=== PATIENT | male | born 1965 | race Caucasian/White ===

== ENCOUNTER 2018-02-26 16:38 | Emergency (ER) | payer SELFPAY ==
--- NOTE | 2018-02-26 16:46 | EDPHY ---
General Time Seen by Provider: 02/26/18 16:40 Narrative: 1740: I assessed this patient at the request of Gauarv CERRATO. The patient reports that he was discharged from [facility] 2 weeks ago after an 8 week admission, for an unknown bacterial infection of his legs which required a skin graft. He is unsure which IV antibiotics he was on but believes they were continuous. He was discharged with an antibiotic prescription but has not filled this. Denies fever or history of endocarditis. He does admit to prior abuse of heroin and cocaine as well as a medical history of diabetes and hepatitis. On exam he has bilateral macerated, open, weeping, sloughing, erythematic, warm to the touch lower extremities. (Karen Dumont) CHIEF COMPLAINT: medical clearance for [facility] HISTORY OF PRESENT ILLNESS: Patient presents in custody of [facility]'s Office for medical clearance for incarceration. The forest officer does not know the reason he is here but says he has "some skin infections on his legs." He also reports that he was Center as "they wouldn't take him at the [facility]." Patient reports that he has had some wounds to the legs that he was reportedly admitted for [facility] for nearly 8 weeks, discharged home approximately 3 weeks ago. He also has a reported "cyst on the front of my spine." He has no leg weakness, numbness or tingling. No incontinence of bowel or bladder. He has been able to walk. He says that he is here because he missed a court date while he was in the hospital most recently. [facility] officer at bedside reports that he had a warrant and is here because of a welfare check. The patient's only complaints are his lower extremities. The painful to him. He has had no fever. REVIEW OF SYSTEMS: Ten systems reviewed and are negative unless otherwise noted in the HPI PCP: In [facility] SPECIALISTS: None currently PAST MEDICAL HISTORY: "a lot of things,"does know that he has diabetes mellitus and hypertension PAST SURGICAL HISTORY: No recent surgeries. Previous skin graft SOCIAL HISTORY: Daily smoker. Denies any alcohol or drug use. Lives independently. Recent hospitalizations FAMILY HISTORY: Noncontributory EXAMINATION General Appearance: Alert, no distress. Well-developed and well-nourished Head: normocephalic, atraumatic Eyes: Pupils equal and round, no conjunctival pallor or injection ENT, Mouth: Mucous membranes moist. Poor dentition. Airway patent Neck: Normal inspection, supple, non-tender Respiratory: Lungs are clear to auscultation Cardiovascular: Regular rate and rhythm. No murmur Gastrointestinal: Abdomen is soft and nontender Back: non-tender, no bony abnormalities Neurological: GCS 15. A&O, nonfocal, normal gait Skin: Warm and dry. There is extensive skin changes to lower extremities below the knees in a stocking-glove fashion, consistent with diabetic stasis ulcers with secondary infection and sloughing of the skin I do not appreciate any crepitus or gangrenous appearance. Extremities: tenderness over the lower extremity skin changes. Range of motion lower extremities symmetric. Psychiatric: Mood and affect normal DIFFERENTIAL DIAGNOSES: Including but not limited to diabetic stasis ulcers, cellulitis, MRSA, abscess, Yamil Mack's, diskitis MDM: 4:45 p.m. Medical clearance for incarceration with lower extremity extensive ulcerations and sloughing of the skin. Vital signs are within normal limits. He does not meet any SIRS criteria. He has no neuro complaints despite reporting "a cyst on my spine." I have tried multiple per mutations the patient's name and date of in [facility], but I have been unable to locate his records. We will contact [facility] to receive them. Dr. Dumont will evaluate the patient as well. He is resting in no acute distress. 5:50 p.m. I have now been able to obtain the [facility] report, and Dr. Dumont has evaluated the patient. Patient's discharge summary is available via [facility], and it reveals evidence of MSSA skin infection with possible thoracolumbar osteomyelitis versus abscess. The patient was treated extensively with IV antibiotics and then signed out AMA on February 14. He was instructed to take Bactrim and vancomycin, as he had previous C difficile infection. He tells me has not been taking his antibiotics as prescribed. 6:55 p.m. Notified by RNLizbeth. Patient is no longer under arrest per [facility]'s office, and the patient is now asking to leave. AMA form is being completed, and I will notify Dr. dumont. 7:[address] Dumont notified of the patient's wanting to sign out AMA. I have evaluated the patient and I do feel he has the ability to make this decision. He is awake and alert, in no acute distress, he is not any significant pain or have any distracting injury at this time. He has full capability of understanding the risks the we discussed, including deterioration and even . He is willing to assume this risk and has completed the AMA form and wants to be discharged home. He will be discharged with Keflex and instructions to return to emergency department should he change his mind. He informs me that he will, and that he also has an appointment at [facility] in 2 days. At this time he is stable and he will sign out against medical advice. SUPERVISION: Patient was evaluated and examined in conjunction with my secondary supervising physician as documented. We have both examined the patient. (Gaurav Cárdenas) - Diagnostics Imaging Results: Imaging Impressions Tibia/Fibula X-Ray 02/26/18 17:56 Impression: Soft tissue swelling. No evidence for osseous erosion to suggest osteomyelitis. Tibia/Fibula X-Ray 02/26/18 17:57 Impression: Soft tissue swelling around the left ankle. No definite osteomyelitis. Possible stress fracture posterior calcaneus. - Objective Vital Signs: Initial Vital Signs Temperature (C) 100.0 F 02/26/18 16:41 Heart Rate 90 02/26/18 16:41 Respiratory Rate 16 02/26/18 16:41 Blood Pressure 137/88 H 02/26/18 16:41 O2 Sat (%) 97 02/26/18 16:41 O2 Delivery Mode Room Air Allergies/Adverse Reactions: No Known Allergies Allergy (Unverified 11/06/13 15:11) Home Medications: Medication Instructions Recorded Cephalexin [Keflex (*)] 500 mg PO QID #40 cap 02/26/18 Medications Given: Discontinued Medications Cephalexin (Keflex 500 Mg Prepack#4) 1 btl TAKEHOME EDNOW ONE PRN Reason: Protocol Stop: 02/26/18 19:03 Last Admin: 02/26/18 19:15 Dose: 1 btl Departure - Departure Disposition: Against Medical Advice Clinical Impression: Methicillin susceptible Staphylococcus epidermidis infection Condition: Good Instructions: Cephalexin (By mouth), Cellulitis (ED) Additional Instructions: 1. Recommend that he return to emergency department to complete your care as we do feel he will need inpatient care 2. A few choose not to return to the emergency department, please keep your appointment with your [facility] physicians 3. ED precautions as discussed Referrals: NONE *PRIMARY CARE P,. [Primary Care Provider] - As per Instructions Prescriptions: Cephalexin [Keflex (*)] 500 mg PO QID #40 cap
[2018-02-26 16:48] VITALS: BP 137/88
[2018-02-26] MEDS ORDERED: NS 1,000 ML IV ONE (17:59)
[2018-02-26] MEDS ORDERED: VANCOMYCIN 1.25 GM in D5W 250 ML IV ONE (18:03)
[2018-02-26] MEDS ORDERED: ALTEPLASE 2 MG VIAL IVP PRN (18:16)
[2018-02-26] MEDS ORDERED: CEPHALEXIN 500MG PREPACK#4 BTL TAKEHOME ONE (19:02)
== END 2018-02-26 19:18 | disposition left against medical advice (07) ==
DX: A49.01 Methicillin susceptible Staphylococcus aureus infection, unspecified site (principal)
CPT/HCPCS: J3370

== ENCOUNTER 2018-07-28 14:56 | Inpatient (IN) | payer MEDICAID, OTHER ==
--- NOTE | 2018-07-28 14:57 | EDPHY ---
H & P Time Seen by Provider: 07/28/18 14:57 HPI/ROS: HPI CHIEF COMPLAINT: Back pain. HISTORY OF PRESENT ILLNESS: This is a 52-year-old male, he is currently incarcerated, has a history of IV drug use, has a history of osteomyelitis of his lumbar spine which required 2 rounds of antibiotics. He states he was seen at [facility] as well as a [facility]. He has been incarcerated. He states that he has had increasing low back pain since being incarcerated. Denies fever. Denies saddle anesthesia, denies leg weakness. Past Medical History: IV drug use. Past Surgical History: No recent surgery Social History: Incarcerated, IV drug use. Opiate abuse. Family History: Noncontributory ROS REVIEW OF SYSTEMS: 10 Systems were reviewed and negative with the exception of the elements mentioned in the history of present illness. Exam Constitutional triage nursing summary reviewed, vital signs reviewed, awake/ alert. Eyes normal conjunctivae and sclera, EOMI, PERRLA. HENT normal inspection, atraumatic, moist mucus membranes, no epistaxis, neck supple/ no meningismus, no raccoon eyes. Respiratory clear to auscultation bilaterally, normal breath sounds, no respiratory distress, no wheezing. Cardiovascular rate normal, regular rhythm, no murmur, no edema, distal pulses normal. Gastrointestinal soft, non-tender, no rebound, no guarding, normal bowel sounds, no distension, no pulsatile mass. Genitourinary no CVA tenderness. Musculoskeletal back exam no significant step-offs or crepitus, no midline vertebral tenderness, full range of motion, no calf swelling, no tenderness of extremities, no meningismus, good pulses, neurovascularly intact. Skin chronic wounds to bilateral lower extremities. No significant warmth. I do not appreciate acute cellulitis or abscess. Track lee up the legs. Neurologic awake, alert and oriented x 3, AAOx3, moves all 4 extremities equally, motor intact, sensory intact, CN II-XII intact, normal cerebellar, normal vision, normal speech. Psychiatric normal mood/affect. Heme/Lymph/Immune no lymphadenopathy. Differential Diagnosis: Includes but is not limited to osteomyelitis, diskitis , IV drug use, bacteremia, sepsis Medical Decision Making: Plan for this patient IV establishment blood draw, blood cultures, inflammatory markers, MRI with and without contrast of the lumbar spine. Low threshold for admission. Re-evaluation: I spoke with Dr. Gamez. Discussed case in detail. She recommends IR guided placement of a IV. Will set this up multiple attempts were made in the emergency room including by myself ultrasound to get IV access and was unable to do so. Was able to place a right neck peripheral IV under ultrasound guidance with good blood flow however this infiltrated. 1710: Of note we were able to obtain IV access. Peripheral. He now proceed with MRI. Additionally the officer is accompanying him as he is incarcerated gave him his personal belongings in the patient belong bags he had a bottle of methadone 80 mg he ingested this. This was originally unknown to the officer however we confronted the patient about he admits to taking 80 mg p.o. Methadone in the emergency room. This is his normal dose. Will watch for sedation. The patient asked for IV Ativan to get an MRI of his back however declined to give it to have as he took 80 mg of methadone without notifying us and he is about to go to MRI. I do not think that it is appropriate to give him Ativan as he just took a large dose of methadone prior to MR I. Will continue monitor. Will admit the patient to the hospitalist service as his MRI results have been called to me by Dr. Schuster, there is some enhancement at disc 3 4 anterior aspect concerning for possibly early diskitis. I will consult ID for IV antibiotic recommendations 1818: Spoke with ID discussed the case in detail. Recommends IV Vanco. Recommends admission. He will consult and see and evaluate the patient tommorrow. Hospalist to admit. Source: Patient, Police - Medical/Surgical History Other PMH: untreated Hep C, Type II diabetic, Chronic pain with polysubstance abuse ( heroin and cocaine), Htn, history of afib, anemia and MSSA bactermia of T7-8, soft tissue infection of lower legs Anxiety, hypoxia. Pt left AMA from [place] earlier this month foll Constitutional: Initial Vital Signs Temperature (C) 36.6 C 07/28/18 14:59 Heart Rate 100 07/28/18 14:59 Respiratory Rate 16 07/28/18 14:59 Blood Pressure 165/120 H 07/28/18 14:59 O2 Sat (%) 99 07/28/18 14:59 O2 Delivery Mode Room Air Allergies/Adverse Reactions: No Known Allergies Allergy (Unverified 11/06/13 15:11) Home Medications: Medication Instructions Recorded Ibuprofen [Motrin (*)] 400 mg PO BID PRN 07/28/18 Lisinopril [Zestril 20 mg (*)] 20 mg PO DAILY 07/28/18 Methadone HCl [Methadone Oral 80 mg PO DAILY 07/28/18 Liquid] Acetaminophen [Tylenol 325mg (*)] 650 mg PO Q4HRS PRN tab 07/30/18 Pregabalin [Lyrica 50mg (*)] 50 mg PO DAILY #30 cap 07/30/18 Medical Decision Making - Diagnostics Imaging Results: Imaging Impressions Lumbar Spine MRI 07/28/18 15:02 Impression: 1. Progressive degenerative disk and degenerative joint disease of L3-L4 over the interval with mild encroachment. There is mild endplate edema and enhancement and fluid enhancement of the anterior disk at L3-L4 which can be seen with the degenerative disk and degenerative endplate change, although early diskitis cannot be excluded. 2. Degenerative disk and degenerative joint disease of L4-L5 and L5-S1 as detailed above by level. Results called and discussed with Cassius Banks MD, on 07/28/2018, 18:14. - Data Points Laboratory Results: Laboratory Results 07/29/18 03:38 07/29/18 03:38 Microbiology Results: MICROBIOLOGY 07/28/18 18:35 Blood Blood Culture - Preliminary 07/28/18 15:28 Blood Blood Culture - Preliminary Medications Given: Discontinued Medications Hydrocodone Bitart/Acetaminophen ([place] 5/325) 1 - 2 tab PO Q4HRS PRN PRN Reason: Pain, Moderate Able to Take PO Stop: 08/07/18 19:06 Last Admin: 07/30/18 12:13 Dose: 2 tab Sodium Chloride (Ns) 1,000 mls @ 0 mls/hr IV EDNOW ONE; Wide Open PRN Reason: Protocol Stop: 07/28/18 15:03 Last Admin: 07/28/18 17:48 Dose: 1,000 mls Vancomycin/Sodium Chloride (Vancomycin 1 Gm (Premix)) 250 mls @ 250 mls/hr IV EDNOW ONE PRN Reason: Protocol Stop: 07/28/18 19:12 Last Admin: 07/28/18 19:02 Dose: 250 mls Piperacillin/Tazobactam/Dextrose (Zosyn (Premix)) 100 mls @ 200 mls/hr IV EDNOW ONE PRN Reason: Protocol Stop: 07/28/18 18:42 Last Admin: 07/28/18 19:16 Dose: Not Given Vancomycin HCl 1.25 gm/ Sodium (Chloride) 250 mls @ 166.667 mls/hr IV 0600, 1800 [facility] Stop: 08/28/18 05:59 Last Admin: 07/29/18 06:23 Dose: 250 mls Ibuprofen (Motrin) 800 mg PO EDNOW ONE Stop: 07/28/18 15:25 Last Admin: 07/28/18 15:58 Dose: Not Given Ibuprofen (Motrin) 400 mg PO Q4HRS PRN PRN Reason: Pain, Mild/Fever, Can Take PO Stop: 01/24/19 19:06 Last Admin: 07/29/18 16:30 Dose: 400 mg Lisinopril (Zestril) 20 mg PO DAILY [facility] Stop: 01/25/19 08:59 Last Admin: 07/30/18 08:12 Dose: 20 mg Lorazepam (Ativan Injection) 0.5 mg IVP EDNOW ONE Stop: 07/28/18 16:54 Last Admin: 07/28/18 17:09 Dose: Not Given Lorazepam (Ativan Injection) 0.5 - 1 mg IVP Q8HRS PRN PRN Reason: Anxiety, Unable to Take PO Stop: 01/24/19 19:06 Last Admin: 07/28/18 20:58 Dose: 1 mg Methadone HCl (Dolophine) 80 mg PO DAILY@1999 [facility] Stop: 08/08/18 19:59 Last Admin: 07/29/18 21:20 Dose: 80 mg Methadone HCl (Dolophine) 80 mg PO DAILY@1400 [facility] Stop: 08/08/18 19:59 Last Admin: 07/30/18 14:17 Dose: 80 mg Departure - Departure Disposition: [facility] In[facility] Acute Clinical Impression: Back pain Qualifiers: Back pain location: low back pain Chronicity: acute Back pain laterality: unspecified Sciatica presence: unspecified whether sciatica present Qualified Code(s): M54.5 - Low back pain Condition: Good
[2018-07-28] MEDS: NS 1,000 ML IV ONE ×2 (15:32→17:48)
[2018-07-28] MEDS: IBUPROFEN 800 MG TAB PO ONE ×2 (15:32→15:58)
[2018-07-28 15:59] LABS: PLATELET COUNT 246 10^3/uL (150-400)
[2018-07-28 16:12] LABS: INR 1.06 (0.83-1.16)
[2018-07-28] MEDS ORDERED: LORazepam 2 MG/ML INJ IVP ONE (16:53)
[2018-07-28] MEDS ORDERED: GADOBUTROL 10 ML VIAL IVP ONE (17:18)
[2018-07-28] MEDS ORDERED: PIPERACILLIN/TAZO 4.5 GM/DEX 100 ML IV ONE (18:13)
[2018-07-28] MEDS ORDERED: VANCOMYCIN HCL/NORMAL SALINE 250 ML IV ONE (18:13)
[2018-07-28] MEDS ORDERED: LORazepam 2 MG/ML INJ IVP PRN (19:07)
[2018-07-28] MEDS ORDERED: ACETAMINOPHEN 325 MG TAB PO PRN (19:07)
[2018-07-28] MEDS ORDERED: ONDANSETRON 4 MG/2 ML VIAL IVP PRN (19:07)
[2018-07-28] MEDS ORDERED: ONDANSETRON DISINTEGRATING 4 MG TAB PO PRN (19:07)
[2018-07-28] MEDS: HYDROCODONE/APAP 5/325 TAB PO PRN (20:27)
--- NOTE | 2018-07-28 20:54 | PDGENHP ---
History and Physical - Chief Complaint back pain - History of Present Illness 52 yo M with hx of polysubstance IVDA including heroin and cocaine (last use one week ago), presenting under incarceration with [facility] with complaints of low back pain and increased leg pain similar to his last bouts of lumbar spine osteomyelitis. Patient notes he has had issues with chronic infections of his lower extremities that have required skin grafting in the past due to shooting up in his legs, the infections in his legs led to issues with discitis and osteomyelitis that was treated at [facility] in the past with prolonged courses of IV abx--he states he was treated twice for 6 weeks. He notes that he was told that he would require surgical intervention for correction of the osteomyelitis as his spine had become too weak from the recurrent infections but that he ultimately declined surgery. He denies any numbness or weakness, he denies urine or fecal incontinence, he denies fevers or chills. He states that in the past he has been checked for involvement of his heart valves and that has never been an issue. he has no other complaints at this time. History Information - Allergies/Home Medication List Allergies/Adverse Reactions: No Known Allergies Allergy (Unverified 11/06/13 15:11) Home Medications: Ibuprofen [Motrin (*)] 400 mg PO BID PRN 07/28/18 [Last Taken Unknown] Lisinopril [Zestril 20 mg (*)] 20 mg PO DAILY 07/28/18 [Last Taken 07/28/18 08: 00] Methadone HCl [Methadone Oral Liquid] 80 mg PO DAILY 07/28/18 [Last Taken 19:30] I have personally reviewed and updated: family history, medical history, social history, surgical history - Past Medical History Additional medical history: polysubstance abuse/IVDA with heroin and cocaine, last use 1 wk ago. untreated Hep C. DM2. MSSA bacteremia, recurrent. T7/T8 osteomyelitis/discitis. L3/L4 osteomyelitis/discitis. chronic lower extremity wounds s/p skin grafting and hx of nec fasc. 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 psoas abscess. hx of shooting into PICC line with associated type 2 NSTEMI due to air or silica embolus - Surgical History Additional surgical history: skin grafts and debridement for nec fasc lower ext - Social History Smoking Status: Current every day smoker Alcohol Use: Occasionally Drug Use: Cocaine, Heroin Additional social history: currently incarcerated for possession Review of Systems Review of Systems: ROS: 10pt was reviewed & negative except for what was stated in HPI & below Physical Exam Physical Exam: Temp Pulse Resp BP Pulse Ox 36.9 C 75 16 124/85 H 94 07/28/18 20:00 07/28/18 20:00 07/28/18 20:00 07/28/18 20:00 07/28/18 20:00 Constitutional: no apparent distress, chronically ill appearing Eyes: PERRL, anicteric sclera Ears, Nose, Mouth, Throat: moist mucous membranes, poor dentition Cardiovascular: regular rate and rhythym, no murmur, rub, or gallop, No edema Respiratory: no respiratory distress, no rales or rhonchi Gastrointestinal: normoactive bowel sounds, soft, non-tender abdomen Genitourinary: no bladder tenderness Skin: warm, other (bilateral lower extremity track lee/healing wounds L> R) Musculoskeletal: full muscle strength, no muscle tenderness, other (ttp over l3/ l4 ) Neurologic: AAOx3, CN II-XII Intact Psychiatric: interacting appropriately, not anxious, not encephalopathic Lab Data & Imaging Review 07/28/18 15:28 07/28/18 15:28 WBC 11.28 10^3/uL (3.80-9.50) H 07/28/18 15:28 RBC 5.71 10^6/uL (4.40-6.38) 07/28/18 15:28 Hgb 14.6 g/dL (13.7-17.5) 07/28/18 15:28 Hct 45.9 % (40.0-51.0) 07/28/18 15:28 MCV 80.4 fL (81.5-99.8) L 07/28/18 15:28 MCH 25.6 pg (27.9-34.1) L 07/28/18 15:28 MCHC 31.8 g/dL (32.4-36.7) L 07/28/18 15:28 RDW 15.9 % (11.5-15.2) H 07/28/18 15:28 Plt Count 246 10^3/uL (150-400) 07/28/18 15:28 MPV 11.2 fL (8.7-11.7) 07/28/18 15: Neut % (Auto) 54.9 % (39.3-74.2) 07/28/18 15: Lymph % (Auto) 36.3 % (15.0-45.0) 07/28/18 15: [place] % (Auto) 7.2 % (4.5-13.0) 07/28/18 15: Eos % (Auto) 0.9 % (0.6-7.6) 07/28/18 15: Baso % (Auto) 0.4 % (0.3-1.7) 07/28/18 15: Nucleat RBC Rel Count 0.0 % (0.0-0.2) 07/28/18 15: Absolute Neuts (auto) 6.21 10^3/uL (1.70-6.50) 07/28/18 15: Absolute Lymphs (auto) 4.09 10^3/uL (1.00-3.00) H 07/28/18 15: Absolute Monos (auto) 0.81 10^3/uL (0.30-0.80) H 07/28/18 15:28 Absolute Eos (auto) 0.10 10^3/uL (0.03-0.40) 07/28/18 15: Absolute Basos (auto) 0.04 10^3/uL (0.02-0.10) 07/28/18 15: Absolute Nucleated RBC 0.00 10^3/uL (0-0.01) 07/28/18 15: Immature Gran % 0.3 % (0.0-1.1) 07/28/18 15: Immature Gran # 0.03 10^3/uL (0.00-0.10) 07/28/18 15: ESR 14 MM/HR (0-20) 07/28/18 15:28 PT 14.0 SEC (12.0-15.0) 07/28/18 15:28 INR 1.06 (0.83-1.16) 07/28/18 15: APTT 31.2 SEC (23.0-38.0) 07/28/18 15:28 VBG Lactic Acid 1.1 mmol/L (0.7-2.1) 07/28/18 15:28 Sodium 141 mEq/L (135-145) 07/28/18 15:28 Potassium 4.0 mEq/L (3.3-5.0) 07/28/18 15:28 Chloride 107 mEq/L (97-110) 07/28/18 15:28 Carbon Dioxide 23 mEq/l (22-31) 07/28/18 15:28 Anion Gap 11 mEq/L (6-14) 07/28/18 15:28 BUN 20 mg/dL (7-23) 07/28/18 15:28 Creatinine 0.6 mg/dL (0.7-1.3) L 07/28/18 15:28 Estimated GFR > 60 07/28/18 15:28 Glucose 125 mg/dL (70-100) H 07/28/18 15:28 Calcium 9.5 mg/dL (8.5-10.4) 07/28/18 15:28 Total Bilirubin 0.6 mg/dL (0.1-1.4) 07/28/18 15:28 Conjugated Bilirubin 0.3 mg/dL (0.0-0.5) 07/28/18 15:28 Unconjugated Bilirubin 0.3 mg/dL (0.0-1.1) 07/28/18 15:28 AST 23 IU/L (17-59) 07/28/18 15:28 ALT 27 IU/L (21-72) 07/28/18 15:28 Alkaline Phosphatase 138 IU/L (38-126) H 07/28/18 15:28 C-Reactive Protein < 5.0 mg/L (<10.0) 07/28/18 15:28 Total Protein 7.8 g/dL (6.3-8.2) 07/28/18 15:28 Albumin 4.1 g/dL (3.5-5.0) 07/28/18 15:28 Visualized and Interpreted imaging results: Yes Interpretation: lumbar MRI: L3/L4 early discitis possible, degenerative disc Assessment & Plan Assessment: Back pain (Acute) 52 yo M with hx of IVDA and recurrent thoracic/lumbar osetomyelitis/discitis presenting with back pain and imaging findings concerning for early discitis # L3/L4 discitis: with hx of recurrent issues and imaging c/w possible discitis at L3/L4 and pain in that area. At this time will continue treatment with IV vancomycin. ID has been consulted. Blood cultures are pending. Records from [facility] reviewed, in the past has been MSSA present. If cultures come back positive will need echo in the am but no murmur appreciated on exam # polysubstance IVDA: last use 1 week ago, has been in alf, no e/o withdrawal at this time. Currently on methadone which was started both for his heroin abuse but also for his chronic pain issues. Pain will likely be difficult to manage but at this time he is not pushing for additional narcotics. # chronic skin/soft tissue infection: at this time appears overall to be healing without e/o quan cellulitis or purulence, he has undergone skin grafts and debridement for nec fasc in the past with shooters abscess, states he does not shoot into his legs anymore. Will get wound care consult. # DM2: not currently on any DM meds and glucose only 125 this evening, will monitor # HCV: not previously treated, when out of alf recommend f/u # hx of osteomyelitis: patient states he was told in the past that he needs surgery due to the degree of osteo, sounds as if from reports that surgery was also felt to be not absolutely neccessary as he was always neurologically intact , no comment of osteo on Lumbar MRI # observation status for now, pending results of blood cultures and ID consult, possible patient will dc in < 48 hours Patient new to my care. Old records reviewed and summarized as above. Care plan reviewed with ER doctor as above.
[2018-07-28] MEDS: IBUPROFEN 200 MG TAB PO PRN (20:57)
[2018-07-29] MEDS: HYDROCODONE/APAP 5/325 TAB PO PRN ×4 (03:50→21:16)
[2018-07-29] MEDS: IBUPROFEN 200 MG TAB PO PRN ×3 (03:50→16:30)
[2018-07-29 04:55] LABS: PLATELET COUNT 193 10^3/uL (150-400)
[2018-07-29] MEDS ORDERED: VANCOMYCIN 1.25 GM in NS 250 ML IV SCH (06:00)
[2018-07-29] MEDS: LISINOPRIL 20 MG TAB PO SCH (08:56)
--- NOTE | 2018-07-29 10:27 | WOCRNPDOC ---
[facility] Advanced Assessment Note - Skin Integrity Problem, Advanced Assess Left Lower Medial Leg Scab Dressing Type: Allevyn Life Dressing Description: Clean/Dry, Intact Exudate Amount: None Integumentary Issue Intervention: Visualized Under Dressing Letitia Wound Swelling: None Wound Bed Color: [place] Wound Bed Constitution: Red/[place] - Non Granular Tissue, Scab Site Measurement - Head-to-Toe Length X Width X Depth (cm): Overall measurement of scab: [id number] scab. Open area at distal end of scab: 1.8x1x0.1 Skin Integrity Problem Comment: Large scab with small open area at distal end. Open area cleansed with NS and gauze. Recommend applying wound gel to open area and keep covered with a foam dressing. No drainage noted, periwound intact. Possibly open due to traumatic removal of a portion of the scab. Small scab ( 1.6x0.6xscab) located anterior to the larger scab that is intact. Wound care will sign off, please reconsult PRN. Left Medial Ankle Scab Dressing Type: Allevyn Life Dressing Description: Clean/Dry, Intact Exudate Amount: None Integumentary Issue Intervention: Visualized Under Dressing Wound Bed Constitution: Scab Site Measurement - Head-to-Toe Length X Width X Depth (cm): 3.2x1.4xscab Skin Integrity Problem Comment: Intact scab, no open area noted. May keep covered with an allevyn dressing to protect it. Wound care will sign off. Please reconsult PRN.
--- NOTE | 2018-07-29 12:02 | HOSPPROG ---
Hospitalist Progress Note Assessment/Plan: 52-year-old with a history of polysubstance IV drug use including heroin and cocaine [facility] pain. Pain is similar to previous diagnosis of diskitis, please see H&P for full details of his [facility] admissions in the recent past. He has had a history of diskitis and osteomyelitis treated for 6 weeks with IV antibiotics. Recommendations were for spinal surgery which she has declined. He has chronic leg wounds from her recurrent IV drug use into his legs some of these wounds requiring skin grafting. # history of MSSA bacteremia with recurrent T7-T8 osteomyelitis and L3-L4 osteomyelitis status post treatment he has recurrent pain similar to previous pain. * Await blood cultures if positive would need to consider ongoing IV antibiotics * Infectious disease consult * Reviewed MRI. * Pt will need additional midnight stay due to MRI findings and history of bacteremia to rule out current bacteremia prior to dc. # chronic lower extremity wound status post skin grafting and a history of necrotizing fasciitis. * Wound care * Chronic pain, on chronic narcotic use with methadone # IV drug use, ongoing # history of IV drug use into his PICC line associated with type 2 NSTEMI due to air or silica embolus # history of psoas abscess # spinal stenosis related to osteomyelitis and diskitis Subjective: Patient new to me and chart reviewed. Overall looks comfortable but complaining of bilateral lower leg pain. He also has back pain but has good mobility. Objective: Vital Signs Temp Pulse Resp BP Pulse Ox 36.8 C 73 18 145/82 H 97 07/29/18 07:35 07/29/18 07:35 07/29/18 07:35 07/29/18 07:35 07/29/18 07:35 Laboratory Results 07/29/18 03:38 07/29/18 03:38 07/28/18 07/29/18 07/30/18 05:59 05:59 05:59 Intake Total 2250 Balance 2250 PT 14.0 SEC (12.0-15.0) 07/28/18 15:28 INR 1.06 (0.83-1.16) 07/28/18 15:28 - Physical Exam Constitutional: chronically ill appearing, uncomfortable Eyes: PERRL Ears, Nose, Mouth, Throat: moist mucous membranes, hearing normal Cardiovascular: regular rate and rhythym Respiratory: no respiratory distress, no rales or rhonchi Gastrointestinal: soft, non-tender abdomen Genitourinary: no bladder fullness Skin: other (Chronic wounds on his lower extremities evidence of previous skin grafting) Neurologic: AAOx3 Psychiatric: interacting appropriately ICD10 Worksheet Patient Problems: Problems Problem Status Onset Back pain Acute
--- NOTE | 2018-07-29 14:40 | ASMTCMCOM ---
CM Note CM Note Notes: Pt has been admitted from the long term with L3/L4 diskitis. He has a hx of osteomyelitis of his lumbar spine with IV ABX treatment x2. He also has a hx of polysubstance abuse - heroin and cocaine, last use 1 week ago. ID will follow. Per photolith operator outside his room, anticipate d/c back to the long term when pt is medically cleared. CM will follow. Date Signed: 07/29/2018 02:40 PM Electronically Signed By:TANIA Bowden
--- NOTE | 2018-07-29 16:13 | PDMN ---
Medical Necessity Medical necessity: [facility] [place] pain: high risk pt with PMH polysubstance abuse including IVDU ( ongoing) , HX MSSA bacteremia with recurrent oseteomyelitis and hx of necrotizing facisitis - change to INPT status for > 2MN ongoing med nec care, high risk pt need for further monitoring of back pain, awaiting blood cultures r/o current bacteremia.
--- NOTE | 2018-07-29 18:27 | GCON ---
INFECTIOUS DISEASES CONSULTATION DATE OF CONSULTATION: 07/29/2018 REFERRING PHYSICIAN: Nereida Willoughby MD REASON FOR CONSULTATION: Possible lumbar diskitis. HISTORY OF PRESENT ILLNESS: The patient is a 52-year-old male with a past medical history of injecti on drug use and prior osteomyelitis/diskitis of L3-4 and T7-8 due to MSSA, whom I am asked to see in consultation for recurrent low back pain with concern about recurrent diskitis and osteomyelitis. e patient has undergone care at the [facility] earlier this year beginning in the spring for osteomyelitis and diskitis associated with MSSA bacteremia. The patient received 2 separate cour ses of 6 weeks of IV antibiotics as his symptoms promptly recurred after discontinuation of initial 6 -week course. He was told that he would require surgery from an anterior approach and cage placement for stabilization of his spine. In January, he was hospitalized with MSSA bacteremia, at which point in time he left A after receiving approximately 2 weeks of IV antibiotics. The patient describes dev eloping recurrent low back pain approximately 1 week ago. He feels the pain is similar to that which he experienced with his initial diskitis and osteomyelitis. He has not experienced fevers or chills . He does describe intermittent night sweats. He has not had any motor weakness or sensory deficit. No bowel or bladder incontinence. He does have chronic ulcerations over both lower extremities, wh ich have been present for a prolonged period. The patient notes his last injection drug use was appr oximately 1 week ago, at which point he injected into his deltoid. He either uses insulin needles or needles through the needle exchange. At the time of evaluation yesterday, he was noted to have a mi ld leukocytosis with white count of 11.3. ESR was 14, and C-reactive protein was less than 5. Lumba r spine MRI showed changes at L3-L4 characterized by mild endplate edema and enhancement with fluid e nhancement in the disk space of L3-4, with considerations of degenerative disease versus early diskit is. The patient had an MRI of the spine performed in January at the [facility], which showed L3-4 epidural phlegmon, which was decreasing in size, with stable end-plate destruction at L3-4. e patient has been started empirically on vancomycin after blood cultures were obtained. Given the neisha hull findings, I am now asked to assist in his ongoing management. PAST MEDICAL HISTORY: Diskitis/osteomyelitis of T7-8 and L3-4, complicated by epidural abscess and p soas abscess due to MSSA, hepatitis C, injection drug use, hypertension, diabetes mellitus, chronic l ower extremity ulcerations. Patient with wound culture showing MRSA in January of 2018. PAST SURGICAL HISTORY: Left knee arthroscopy, debridement of lower extremity ulcerations. CURRENT MEDICATIONS: Vancomycin 1.25 g IV q.12 hours, [place] as needed, Motrin as needed, lisinopril 20 mg p.o. daily, methadone 80 mg p.o. daily. ALLERGIES: No known drug allergies. SOCIAL HISTORY: Patient smokes 1 pack per day. No alcohol use. Patient uses injection heroin and c ocaine, with last use 1 week ago. He has been injecting into his muscles. There is a [facility] at [facility]. He currently is in alf. FAMILY HISTORY: Hypertension. REVIEW OF SYSTEMS: Outside that noted in the HPI, the remainder of a 10-system review is unremarkabl e. PHYSICAL EXAMINATION: VITAL SIGNS: Temperature 36.8, heart rate 73, respiratory rate 18, blood pres sure 145/82, oxygen saturation 97% on room air. GENERAL: Patient is well nourished, well developed, in no acute distress. He appears nontoxic. HEENT: There is no scleral icterus, conjunctival injec tion, or conjunctival petechiae. Oropharynx shows moist mucous membranes. Dentition in fair repair. There is no nasal discharge. There is no tenderness over the frontal, maxillary, or mastoid area. NECK: Supple, without palpable lymphadenopathy or thyromegaly. CHEST: Clear to auscultation bilat erally, without adventitious sounds. The respiratory effort is normal. CARDIOVASCULAR: Regular rat e and rhythm, without murmurs, gallops, or rubs. ABDOMEN: Soft, nontender, nondistended. There is no palpable organomegaly. Bowel sounds are present. Small indurated area at site of insulin injecti on over right upper quadrant. BACK: There is point tenderness over the lumbosacral spine. The marcus irwin of the spine is without tenderness. MUSCULOSKELETAL: No cyanosis, clubbing, or edema. SKIN: There are chronic venous insufficiency changes over both lower extremities. There are scabbed ulcer ations present over both lower extremities, without signs of active infection or purulent drainage. Warm and dry to touch, without stigmata of endocarditis. NEUROLOGIC: Patient is alert and interacts appropriately with examiner. Cranial nerves 2-12 are grossly intact. Sensation is grossly intact. Muscle tone and bulk are normal. LYMPHATICS: No cervical, supraclavicular, or inguinal adenopathy present. LABORATORY DATA: White blood cell count 9.4, hematocrit 43.0, platelets 193, neutrophils 45%, lympho cytes 46%, ESR 14, creatinine 0.7, AST 23, ALT 27, bilirubin 0.6, alkaline phosphatase 138, albumin 4 .1, C-reactive protein less than 5. Blood cultures x2 sets are pending. IMAGING: As outlined above, which was reviewed with Radiology today. IMPRESSION: 1. Low back pain with prior history of diskitis and osteomyelitis due to methicillin-susceptible Sta phylococcus aureus: Differential considerations include recurrent diskitis versus musculoskeletal lo w back pain from degenerative disease. MRI is more suggestive of degenerative disease than diskitis, although cannot fully distinguish. Would be helpful to obtain previous MRI for comparison. Will se e if we can have CD images couriered to [facility] for comparative purposes. Favor dis continuing vancomycin, observing off antibiotics. If blood cultures were to show growth of Staphyloc occus aureus, then would necessitate 6 weeks of intravenous antibiotic therapy. RECOMMENDATIONS: 1. Discontinue vancomycin. Observe off antibiotics. 2. Will try to obtain prior imaging discs from [facility] for comparison to current MRI. 3. Follow up blood cultures as available. 4. If blood cultures remain negative, would favor continued observation off antibiotics with interva l reimaging of spine to ensure no progressive disease. If progressive disease were present, then wou ld potentially need to proceed with disk aspiration. 5. Thank you for this consultation. We will continue to follow the patient with you. /[id number]/MODL
[2018-07-29] MEDS ORDERED: METHADONE HCL 10 MG/ML UDSYR PO SCH (20:00)
[2018-07-30] MEDS: LISINOPRIL 20 MG TAB PO SCH (08:12)
[2018-07-30] MEDS: HYDROCODONE/APAP 5/325 TAB PO PRN ×2 (08:13→12:13)
[2018-07-30 11:58] VITALS: BP 169/100
--- NOTE | 2018-07-30 12:33 | ASMTCMCOM ---
CM Note CM Note Notes: Pts case discussed in tx rounds. Pt is being discharged today. Pt was bonded from prison yesterday and from the understanding of pts nurse, it is pts responsibility to notify prison he is being discharged. No other needs at this time. CM available for changes. Plan: Independent Date Signed: 07/30/2018 12:32 PM Electronically Signed By:FITO Fitch
--- NOTE | 2018-07-30 12:35 | ASMTLACE ---
LACE Length of stay for Answers: 2 days current admission Acuity / Level of Answers: Yes Care: Did the patient have an inpatient admission? Comorbidities - select Answers: Diabetes (uncontrolled or all that apply controlled) Opioid dependence / Chronic pain Other Notes: HTN; Hep C; AFib # of Emergency department Answers: 1-2 visits in the last 6 months Social determinants Answers: History of substance abuse (ETOH, street drugs, prescription drugs, etc.) Mental health diagnosis (anxiety, depression, pers onality disorders, etc.) Score: 18 Date Signed: 07/30/2018 12:34 PM Electronically Signed By:FITO Fitch
[2018-07-30] MEDS ORDERED: METHADONE HCL 10 MG/ML UDSYR PO SCH (14:00)
--- NOTE | 2018-07-30 15:23 | GDS ---
DISCHARGE DIAGNOSES: 1. Lumbar back pain with radiculopathy secondary to degenerative disk disease with radiculopathy. 2. History of methicillin-susceptible Staphylococcus aureus bacteremia. 3. History of T7-T8 and L3-L4 osteomyelitis, status post 6 weeks of intravenous antibiotic courses x 2. 4. Chronic lower extremity wounds. 5. Ongoing intravenous drug abuse. CONSULTANTS: Dr. Enrrique Mueller, Infectious Disease. IMAGING STUDIES: Lumbar spine MRI, July 28, 2018, showed progressive degenerative disk and degene rative joint disease of L3-L4, mild end-plate edema and enhancement of the anterior disk are seen, wh ich could be secondary to degenerative disk disease versus early diskitis. HISTORY: For details, please see history and physical dated July 28, 2018. In brief, the patient is a 52-year-old male with a history of IV drug abuse and previous hospitalizations for thoracic and lumbar spine osteomyelitis, for which he has completed 2 separate courses of IV antibiotics, each 6 weeks in duration, who presented to the emergency department with low back pain. He has continued to use IV drugs and is concerned he may have recurrent osteomyelitis of the spine. He was admitted for further evaluation. HOSPITAL COURSE: Patient was admitted to the medical/surgical unit. MRI was possibly suggestive of early diskitis. Blood cultures were drawn. He was started on IV vancomycin. Infectious Disease con sult was obtained. It is thought that his pain is more likely related to degenerative disk disease o f the spine rather than recurrent diskitis and osteomyelitis. His blood cultures remained negative a t the time of discharge. Antibiotics were discontinued, and he was observed for 24 hours. He has be en afebrile throughout the hospitalization. His white count is normal the day prior to discharge. I t is recommended he at some point have interval reimaging of the spine to ensure no progression of di sease. Close followup with Infectious Disease is planned for this purpose. With respect to his back pain, he does describe radicular symptoms. He states he has not responded t o Neurontin in the past. We discussed a trial of low-dose Lyrica with close followup with his primar y care. DISPOSITION: Patient is discharged home in stable condition. FOLLOWUP: Dr. Enrrique Mueller, [facility] for Infectious [facility], August 13 at 10:30 a.m. DISCHARGE MEDICATIONS: Please see [facility] for completed outpatient medication list. New medications on discharge include: 1. Tylenol 650 mg p.o. q.4 hours p.r.n. 2. Lyrica 25 mg p.o. b.i.d., #60, no refills. He will continue other outpatient medications as previously prescribed, including ibuprofen 400 mg p. o. b.i.d. p.r.n., lisinopril 20 mg p.o. daily, and methadone 80 mg p.o. daily, which he takes for chr onic pain and opioid dependence. /[id number]/MODL
== END 2018-07-30 16:10 | disposition home or self-care (01) | DRG 347 ==
LOC: F2W 19:57 → OBSVTOIN 07-29 13:37
PROVIDERS: ADMIT Internal Medicine; ATTEND Internal Medicine
DX: M51.36 Other intervertebral disc degeneration, lumbar region (principal); E11.9 Type 2 diabetes mellitus without complications; E86.9 Volume depletion, unspecified; M51.16 Intervertebral disc disorders with radiculopathy, lumbar region; F11.10 Opioid abuse, uncomplicated; F14.10 Cocaine abuse, uncomplicated; Z86.19 Personal history of other infectious and parasitic diseases
CPT/HCPCS: 97165-GO; A9585; G0378; J2060; J2543; J3370

== ENCOUNTER 2018-12-04 17:48 | Emergency (ER) | payer MEDICAID ==
[2018-12-04 17:54] VITALS: BP 168/99
--- NOTE | 2018-12-04 18:10 | EDPHY ---
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 Patient has a history of IV drug use. Patient has been on antibiotics intermittently for an extended period of time. He is not currently on any antibiotics. The patient was [facility] He was sent to the emergency department for med clearance. Patient does have redness on his bilateral lower extremities. The patient feels this is fairly typical of his baseline appearance. He has had no increasing lower extremity pain. No fevers or chills. No new discharge. REVIEW OF SYSTEMS: 10 systems were reveiwed and are negative with the exception of the elements mentioned in the history of present illness. Past Medical/Surgical History: Includes MRSA infection, IV drug use Smoking Status: Current every day smoker Physical Exam: Vitals noted. Afebrile GENERAL: Well-appearing, in no acute distress, alert. HEENT: Eyes normal to inspection, no signs of dehydration. NECK: Normal, supple. RESPIRATORY: Clear to auscultation bilaterally, no rales, rhonchi or wheezing. CVS: Regular rate and rhythm, no rubs, murmurs, or gallops. ABDOMEN: Soft, nontender, nondistended, no organomegaly. SKIN: See extremity exam. Warm, dry. No pallor. EXTREMITIES: [Patient has bilateral lower extremity erythema. This extends up to the knees bilaterally. Patient has old and healing wounds. There is no active discharge. Minimal bilateral lower extremity edema. NEURO/PSYCH: Alert and oriented, normal mood and affect, normal motor sensory exam. Constitutional: Initial Vital Signs Temperature (C) 36.9 C 12/04/18 17:52 Heart Rate 80 12/04/18 17:52 Respiratory Rate 18 12/04/18 17:52 Blood Pressure 168/99 H 12/04/18 17:52 O2 Sat (%) 93 12/04/18 17:52 O2 Delivery Mode Room Air Allergies/Adverse Reactions: No Known Allergies Allergy (Unverified 12/04/18 17:54) Home Medications: Medication Instructions Recorded Ibuprofen [Motrin (*)] 400 mg PO BID PRN 07/28/18 Lisinopril [Zestril 20 mg (*)] 20 mg PO DAILY 07/28/18 Methadone HCl [Methadone Oral 80 mg PO DAILY 07/28/18 Liquid] Acetaminophen [Tylenol 325mg (*)] 650 mg PO Q4HRS PRN tab 07/30/18 Pregabalin [Lyrica 50mg (*)] 50 mg PO DAILY #30 cap 07/30/18 Cephalexin [Keflex (*)] 500 mg PO QID 10 Days cap 12/04/18 Sulfamethox/Tmp 800/160 mg 1 tab PO BID 10 Days tab 12/04/18 [Bactrim Ds] Medical Decision Making ED Course/Re-evaluation: In the emergency department I met police on arrival. Per their report the patient will be released on [facility] this evening. I discussed the findings with the patient. He will be started on Keflex and Bactrim. Patient feels comfortable this plan. He was given warnings prior to leaving. He is given follow-up with wound care clinic. Differential Diagnosis: My differential includes but is not limited to cellulitis, abscess, foreign body , MRSA, bacteremia, sepsis Departure - Departure Disposition: Home, Routine, Self-Care Clinical Impression: Cellulitis Qualifiers: Site of cellulitis: extremity Site of cellulitis of extremity: lower extremity Laterality: unspecified laterality Qualified Code(s): L03.119 - Cellulitis of unspecified part of limb Condition: Good Instructions: Cellulitis (ED) Additional Instructions: Take your entire course of antibiotics. You been given follow-up with the wound care clinic. Call tomorrow morning to make an appointment. Return with increasing redness, fever, pain or any other concerns. Referrals: [facility] [Outside] - 2-3 days without fail Prescriptions: Cephalexin [Keflex (*)] 500 mg PO QID 10 Days cap Sulfamethox/Tmp 800/160 mg [Bactrim Ds] 1 tab PO BID 10 Days tab
== END 2018-12-04 18:21 | disposition home or self-care (01) ==
LOC: EDUNIT#
DX: L03.116 Cellulitis of left lower limb (principal); L03.115 Cellulitis of right lower limb